=== PATIENT | male | born 1970 | race Two or more races ===

== ENCOUNTER 2021-05-30 12:30 | Inpatient (IN) | payer OTHER ==
[~2021-05-30] VITALS: Ht 165.1 cm; Wt 78.9 kg
[2021-05-30] MEDS ORDERED: CIPRO500 MG (12:38)
[2021-05-30] MEDS ORDERED: METRONIDAZOLE500 MG (12:38)
== END 2021-06-02 14:53 | disposition home or self-care (01) | DRG 392 ==
LOC: ER 12:30 → SEC-K 16:24 → SURH 16:24
PROVIDERS: ADMIT Surgery; ATTEND Surgery
PROC: 8E0ZXY6 Isolation (ICD-10-PCS; 2021-05-30)
PROC: BW40ZZZ Ultrasonography of Abdomen (ICD-10-PCS; principal; 2021-06-02)
DX: K52.89 Other specified noninfective gastroenteritis and colitis (principal); A92.8 Other specified mosquito-borne viral fevers; E86.0 Dehydration; R74.8 Abnormal levels of other serum enzymes; D69.59 Other secondary thrombocytopenia; B99.8 Other infectious disease; D72.818 Other decreased white blood cell count; R50.9 Fever, unspecified; Z20.822 Contact with and (suspected) exposure to COVID-19; Z12.11 Encounter for screening for malignant neoplasm of colon